=== PATIENT | male | born 1935 | race Caucasian/White ===

== ENCOUNTER 2024-01-01 17:18 | Emergency (ER) | payer MEDICARE, OTHER ==
[2024-01-01 17:59] LABS: BASOPHILS ABSOLUTE AUTO 0.1 K/mm3 (0.0-0.2); BASOPHILS PERCENT AUTO 0.6 % (0.0-1.0); EOSINOPHILS ABSOLUTE AUTO 0.2 K/mm3 (0.0-0.4); EOSINOPHILS PERCENT AUTO 1.9 % (0.0-6.0); HEMATOCRIT 45.8 % (42.0-52.0); HEMOGLOBIN 15.7 gm/dl (14.0-18.0); IMMATURE GRAN ABSOLUTE AUTO 0.02 K/mm3 (0.00-0.05); IMMATURE GRAN PERCENT AUTO 0.2 % (0.0-0.4); LYMPHOCYTES ABSOLUTE AUTO 2.6 K/mm3 (1.0-4.8); LYMPHOCYTES PERCENT AUTO 31.6 % (24.0-44.0); MEAN CORPUSCULAR HEMOGLOBIN 30.6 pg (28.0-32.0); MEAN CORPUSCULAR HGB CONC 34.3 g/dl (32.0-36.0); MEAN CORPUSCULAR VOLUME 89.3 fl (83.0-99.0); MEAN PLATELET VOLUME 12.3 fl (9.4-12.4); MONOCYTES ABSOLUTE AUTO 0.9 K/mm3 (0.0-0.8); MONOCYTES PERCENT AUTO 10.2 % (0.0-8.0); NEUTROPHILS ABSOLUTE AUTO 4.6 K/mm3 (1.8-7.7); NEUTROPHILS PERCENT AUTO 55.5 % (41.0-71.0); PLATELET COUNT,PLT 131 K/mm3 (150-400); RED BLOOD CELL COUNT 5.13 M/mm3 (4.52-5.90); WHITE BLOOD CELL COUNT,WBC 8.33 K/mm3 (3.9-11.3)
[2024-01-01 18:06] LABS: INR 0.97; PROTHROMBIN TIME 10.4 SECONDS (9.7-12.0)
[2024-01-01 18:08] LABS: PTT,PARTIAL THROMBOPLSTIN TIME 24.4 SECONDS (21.7-31.4)
[2024-01-01 18:30] LABS: A/G RATIO 0.9 (1-2); ALBUMIN 3.5 g/dl (3.4-5.0); ANION GAP 10.9 (5-15); BILIRUBIN TOTAL 0.6 mg/dL (0.2-1.0); BUN/CREATININE RATIO 13.2 (14-18); CALCIUM 9.1 mg/dL (8.5-10.1); CREATININE 1.9 mg/dL (0.7-1.3); EST CRCL DRUG DOSING (CG) 28.28 mL/min; POTASSIUM,K 3.9 mEq/L (3.5-5.1); PROTEIN TOTAL,TP 7.4 g/dl (6.4-8.2)
[2024-01-01] MEDS: Acetaminophen 325 MG Tab PO ONE (18:35)
[2024-01-01] MEDS: amLODIPine 5 MG Tab PO ONE (19:23)
[2024-01-01] MEDS: Losartan 100 MG Tab PO SCH (19:31)
== END 2024-01-01 20:04 | disposition home or self-care (01) ==
LOC: JD.ED 17:18
DX: R51.9 Headache, unspecified (principal); I10 Essential (primary) hypertension; I25.10 Atherosclerotic heart disease of native coronary artery without angina pectoris; M19.90 Unspecified osteoarthritis, unspecified site; E78.00 Pure hypercholesterolemia, unspecified; E03.9 Hypothyroidism, unspecified; Z79.82 Long term (current) use of aspirin; Z79.899 Other long term (current) drug therapy
CPT/HCPCS: 36415; 70450; 80053; 82947; 83880; 84484; 85025; 85610; 85730; 93005; 99284; A9270; 93010; 99283